=== PATIENT | male | born 1960 | race Caucasian/White ===

== ENCOUNTER 2017-01-29 07:32 | Emergency (ER) | payer SELFPAY ==
--- NOTE | ~2017-01-29 | ER ---
PATIENT'S NAME: [facility] AGE: 56 Y [address] ROOM: [place] [address] LOCATION: [facility] ADMIT DATE: 01/29/2017 ER/Outpatient Report DISCHARGE DATE: 01/29/2017 FAMILY PHYSICIAN: PHYSICIAN, NO ATTENDING PHYSICIAN: Senia Tran Time of Arrival: 0732 hours. Time of Evaluation: 0736 hours. IDENTIFICATION: A 56-year-old male. CHIEF COMPLAINT: Right flank pain radiating to his right groin. HISTORY OF PRESENT ILLNESS: The patient has right flank pain radiating to right groin, onset at 4:00 a.m. Associated with nausea, vomiting. No prior history of kidney stones. PAST MEDICAL HISTORY: ALLERGIES: NO KNOWN DRUG ALLERGIES. CURRENT MEDICATIONS: Aleve. MEDICAL PROBLEMS: Denies. PRIOR SURGERIES: Appendectomy. SOCIAL HISTORY: The patient is here with his significant other, lives in [place]. He is self-employed. Tobacco use, 2 to 3 cigars per day. Alcohol use, denies. Drug use, denies. REVIEW OF SYSTEMS: All systems reviewed and negative other than what is noted in the HPI. PHYSICAL EXAMINATION: VITAL SIGNS: Weight 79.9 kg. Blood pressure 127/66, pulse 76, respirations 16, temperature 96, and saturations 97% on room air. GENERAL: A 56-year-old male, who appears older than his stated age, in PATIENT'S NAME: [facility] AGE: 56 Y [address] ROOM: [place] [address] LOCATION: [facility] ADMIT DATE: 01/29/2017 ER/Outpatient Report DISCHARGE DATE: 01/29/2017 FAMILY PHYSICIAN: PHYSICIAN, NO ATTENDING PHYSICIAN: Senia Tran moderate distress. HEENT: Unremarkable. LUNGS: Clear to auscultation. HEART: Regular rate and rhythm. ABDOMEN: Bowel sounds present. Soft, nondistended. No hepatosplenomegaly. No palpable masses. Tender in the right lower abdomen. Tender in the right flank. No rebound or guarding. SKIN: [place], warm, and dry. No lesions or rashes noted. NEURO: No focal deficit. EMERGENCY DEPARTMENT COURSE: An IV was initiated, Toradol was given, but he continued to have pain. Fentanyl 50 mcg was given and Zofran 4 mg. His pain improved. Sodium 144, potassium 4.1, chloride 109, CO2 of 28, BUN 17, creatinine 0.9, blood sugar 137. Liver enzymes, alkaline phosphatase 149. Hemoglobin 13.3, hematocrit 40.6, platelets 394, white count 9.2. UA: 10 to 20 white cells, 50 to 100 red cells. Urine culture pending. CT stone protocol reveals CT findings of partial right renal collecting system obstruction by a 4 mm calculus at the right UV junction, prostate calcifications, clear lung bases. The patient was given IV fluids. His blood pressure did drop after the fentanyl. Urine was cultured. He remained afebrile. IMPRESSION: Kidney stone, probably passed. PLAN: Home to rest. Strain urine. Tylenol or ibuprofen for [id number] pain. [place] for severe pain, 5/325, 1 to 2 p.o. q.4-6 hours p.r.n. severe pain, dispensed 10 with 0 refills. Zofran 4 mg q.6 hours p.r.n. nausea, dispensed 4 with 0 refills. Flomax 0.4 mg p.o. given here, one daily, dispensed 7 with 0 refills. Bactrim DS b.i.d. for 3 days. Possible UTI as well. Plan to follow up at [facility] in 1 to 2 days. Follow up sooner if any problems or concerns. The patient understands and agrees, and all questions have been answered. SENIA TRAN MD CAR/modl /[id number] d: 01/30/1741 t: 01/30/17 0923, OUTPATIENT REPORT
[~2017-01-29 07:32] MED LIST: COLACE100 MG PO; NEOSPORIN15 GM TOP; NEXIUM40 MG PO; PERCOCET 5-3251 EACH PO
[2017-01-29 08:20] LABS: BASOPHIL % 0.2 %; EOSINOPHIL # 0.1 K/uL (0.0-0.5); EOSINOPHIL % 0.5 %; HEMATOCRIT 40.6 % (37.0-53.0); HEMOGLOBIN 13.3 g/dL (12.0-17.0); IMMATURE GRANULOCYTE % 0.3 %; LYMPHOCYTE # 2.4 K/uL (0.8-4.0); LYMPHOCYTE % 26.3 %; MCH 30.7 pg (27.0-34.0); MCHC 32.8 gm/dL (32.0-36.5); MCV 93.8 fl (83.0-98.0); MONOCYTE # 0.8 K/uL (0.0-1.0); MONOCYTE % 8.6 %; NEUTROPHIL # (ANC) 5.9 K/uL (1.4-9.0); NEUTROPHIL % 64.1 %; NRBC % 0 /100WBC (0-0.00); PLATELET COUNT 394 K/uL (150-450); RBC 4.33 M/uL (4.00-6.00); RDW-CV 13.2 % (11.9-14.6); WBC 9.2 K/uL (4.0-11.0)
[2017-01-29 08:36] LABS: ALBUMIN 3.6 gm/dL (3.5-5.0); ALK PHOS 149 IU/L (33-138); ALT 28 IU/L (12-78); ANION GAP 11.1 (10.0-19.0); AST 22 IU/L (10-40); BLOOD UREA NITROGEN 17 mg/dL (6-24); CALCIUM 8.2 mg/dL (8.5-10.5); CHLORIDE 109 mMol/L (96-110); CO2 28 mMol/L (22-32); CREATININE 0.9 mg/dL (0.6-1.3); ESTIMATED GFR (MDRD EQUATION) > 60; POTASSIUM 4.1 mMol/L (3.7-5.1); SODIUM 144 mMol/L (135-145); TOTAL BILIRUBIN 0.2 mg/dL (0.0-1.5); TOTAL PROTEIN 7.4 g/dL (6.0-8.4)
[2017-01-29 10:57] LABS: BILIRUBIN URINE NEGATIVE (NEGATIVE); BLOOD URINE 250 /UL (NEGATIVE); COLOR URINE YELLOW (YELLOW); GLUCOSE URINE NEGATIVE (NEGATIVE); KETONE URINE NEGATIVE (NEGATIVE); LEUKOCYTES URINE 25 /UL (NEGATIVE); NITRITE URINE NEGATIVE (NEGATIVE); PROTEIN URINE 30 mg/dL (NEGATIVE); UROBILINOGEN URINE NORMAL (NORMAL)
[2017-01-29 11:01] LABS: TURBIDITY URINE 1+ (CLEAR)
[2017-01-29 11:16] LABS: AMORPHOUS URINE 1+ (NEGATIVE); BACTERIA URINE NEGATIVE (NEGATIVE); MUCUS URINE 3+ (NEGATIVE); RBC URINE 50-100 #/HPF (NEGATIVE)
== END 2017-01-29 12:58 | disposition disaster alternative care site (69) ==
LOC: GMED 07:32
PROVIDERS: Family Medicine
DX: N13.2 Hydronephrosis with renal and ureteral calculous obstruction (principal); F17.210 Nicotine dependence, cigarettes, uncomplicated; Z90.49 Acquired absence of other specified parts of digestive tract
CPT/HCPCS: J1885; J2405; J3010; J7030